=== PATIENT | female | born 1990 | race African-American/Black ===

== ENCOUNTER 2018-12-05 21:28 | Emergency (ER) | payer MEDICAID ==
[~2018-12-05] VITALS: Ht 152.4 cm; Wt 65.8 kg
[~2018-12-05 21:28] MED LIST: PREN-145 OR
[2018-12-05 23:32] VITALS: BP 101/62
[2018-12-06] MEDS ORDERED: ACETAMINOPHEN 500 MG TAB PO ONE (01:30)
[2018-12-06] MEDS ORDERED: cefTRIAXone SOD 1,000 MG VL IM ONE (01:30)
[2018-12-06] MEDS ORDERED: IBUPROFEN 400 MG TAB PO ONE (01:30)
== END 2018-12-06 01:59 | disposition home or self-care (01) ==
LOC: ER 21:30
DX: S50.362A Insect bite (nonvenomous) of left elbow, initial encounter (principal); L03.114 Cellulitis of left upper limb; W57.XXXA Bitten or stung by nonvenomous insect and other nonvenomous arthropods, initial encounter; Y93.89 Activity, other specified; Y99.8 Other external cause status; Y92.89 Other specified places as the place of occurrence of the external cause
CPT/HCPCS: 96372; 99283; J0696